=== PATIENT | female | born 1980 | race African-American/Black ===

== ENCOUNTER 2019-06-30 12:00 | Outpatient (CLI) | payer OTHER ==
--- NOTE | 2019-06-30 14:43 | MRI Report ---
Reason: PAIN IN LT KNEE Procedure Date: 06/30/2019 Accession Number: [id number] / [id number] Procedure: MRI - Knee LT W/O CPT Code: Final Report FULL RESULT: EXAM: LEFT KNEE MRI WITHOUT CONTRAST EXAM DATE: 06/30/2019 01:19 PM. CLINICAL HISTORY: Left knee popping after jumping on a bed. Meniscal repair 14 years ago. COMPARISON: None. TECHNIQUE: Multiplanar, multisequence T1-weighted and fluid-sensitive sequences of the knee without contrast. Other: None. FINDINGS: Bones: No fractures or subluxations. No marrow edema. No bone lesions. Articular Cartilage: Focal partial thickness erosion of the hyaline cartilage of the lateral patellar facet with an underlying subchondral cyst. The articular cartilage in the medial and lateral compartments is intact. Medial Meniscus: The medial meniscus is intact. Lateral Meniscus: The body of the lateral meniscus appears small, consistent with the history of prior meniscal surgery. Cruciate Ligaments: The anterior and posterior cruciate ligaments are intact. Collateral Ligaments: The medial collateral and lateral collateral ligamentous structures are intact. Tendons: The quadriceps, patellar, semimembranosus, and popliteus tendons are unremarkable. Musculature: No edema or fatty atrophy. Other: There is a small joint effusion. No popliteal cyst. No loose bodies. The medial and lateral retinacula are intact. The subcutaneous tissues and fat pads are unremarkable. IMPRESSION: 1. Mild degenerative change of the lateral half of the patellofemoral joint. 2. Small joint effusion. RADIA
== END 2019-06-30 12:01 | disposition home or self-care (01) ==
LOC: DI 12:00
PROVIDERS: ATTEND Family Medicine
DX: M17.12 Unilateral primary osteoarthritis, left knee (principal); M25.462 Effusion, left knee

== ENCOUNTER 2020-03-08 08:57 | Outpatient (CLI) | payer OTHER ==
--- NOTE | 2020-03-08 11:50 | MRI Report ---
PROCEDURE: Ankle RT W/O INDICATIONS: RT ANKLE SPRAIN, PAIN TECHNIQUE: Noncontrast Magnetic Resonance Imaging (MRI) of the ankle/hindfoot was performed utilizing the follow ing sequences: sagittal T1 spin echo, sagittal inversion recovery, axial PD fast spin echo, axial T2 inversion recovery, coronal T1 spin echo and inversion recovery. COMPARISON: None. FINDINGS: Image quality: Excellent. Bones and joints: No acute trabecular bone injury. Mild subchondral edema is seen at the anteromedial aspect of the oly ar dome and the adjacent portion of the tibial plafond (image 22 of series 501) with overlying cartil age irregularity, most likely representing mild chronic degenerative changes. No disruption of the cid bchondral plate is seen. There is degenerative spurring at the dorsal aspect of the talonavicular bella nt. A small mortise joint effusion is present. Medial structures: The deltoid ligament and the spring ligament are intact. The posterior tibialis, flexor digitorum longus, and flexor hallucis longus tendons are intact and wi thin normal limits. The posterior tibial neurovascular bundle appears normal within the tarsal tunnel , without extrinsic mass effect. Lateral structures: The anterior and posterior distal tibiofibular ligaments are also intact. There is thickening of the anterior talofibular ligament and the calcaneofibular ligament, compatible with chronic moderate grad e sprains/chronic partial tears. The peroneus longus and peroneus brevis tendons demonstrate a small amount of fluid within the tendon sheath at the level of the distal fibula compatible with mild tenosynovitis.. The sinus tarsi demonstrates normal fatty signal. Anterior structures: The tibialis anterior, extensor hallucis longus, and extensor digitorum longus tendons appear intact. Posterior and plantar structures: The Achilles tendon is intact. The medial and lateral bands of the plantar fascia are within normal l imits. IMPRESSION: 1. Mild degenerative changes at the mortise joint and the talonavicular joint. Small mortise joint e ffusion. 2. Chronic moderate grade 2 sprains/chronic partial tears of the anterior talofibular and calcaneofi bular ligaments. 3. Mild peroneus brevis and longus tenosynovitis. Reviewed by: Hugo Brothers MD on 03/08/2020 11:49 AM PDT Approved by: Hugo Brothers MD on 03/08/2020 11:49 AM PDT Station ID: [id number]
== END 2020-03-08 08:58 | disposition home or self-care (01) ==
LOC: DI 08:57
PROVIDERS: ATTEND Family Medicine
DX: M19.071 Primary osteoarthritis, right ankle and foot (principal); M65.871 Other synovitis and tenosynovitis, right ankle and foot; S93.411S Sprain of calcaneofibular ligament of right ankle, sequela; S93.491S Sprain of other ligament of right ankle, sequela